=== PATIENT | female | born 1995 | race Caucasian/White ===

== ENCOUNTER 2019-02-03 09:22 | Inpatient (IN) | payer BC ==
[2019-02-03] MEDS ORDERED: Lactated Ringers 1000 ML Bag* 1,000 ML IV ONE ×2 (11:04→14:19)
[2019-02-03] MEDS ORDERED: Buffered Lidocaine 1% SYRIN* 1 ML/SYRINGE INTRADERM ONE (11:04)
[2019-02-03] MEDS ORDERED: Lidocaine 1% MPF ** 5 ML VIAL ONE (11:08)
[2019-02-03] MEDS ORDERED: Ampicillin ADVAN(*) 2 GM in NS 0.9% 100 ML* 100 ML IVPB ONE (11:13)
[2019-02-03] MEDS ORDERED: Betamethasone INJ* 6 MG/ML 5 ML VIAL (30 MG) IM ONE (11:13)
[2019-02-03] MEDS ORDERED: OBEPIDURAL* 0 ML EPIDURAL ONE (11:24)
[2019-02-03 11:49] LABS: ABS Lymphocytes 1.5 10^3/ul (1.0-4.8); ABS Monocytes 0.7 10^3/ul (0-0.8); ABS Neutrophils 6.1 10^3/ul (1.5-7.7); Eosinophil % 0.6 %; Hematocrit 34 % (35-47); Hemoglobin 11.4 g/dL (12.0-16.0); Lymphocyte % 18.2 %; Mean Corpuscular HGB Conc 33 g/dL (31-36); Mean Corpuscular Hemoglobin 26 pg (27-31); Mean Corpuscular Volume 80 fL (80-97); Mean Platelet Volume 8.6 fL (7.4-10.4); Nucleated Red Blood Cells % 0.1; Platelet Count 150 10^3/uL (150-450); Red Blood Count 4.31 10^6 /uL (3.70-4.87); Red Cell Distribution Width 16 % (10-15); White Blood Count 8.4 10^3/uL (3.5-10.8)
[2019-02-03] MEDS ORDERED: Lactated Ringers 1000 ML Bag* 1,000 ML IV SCH ×3 (12:00→18:00)
[2019-02-03 12:02] LABS: Urine Benzodiazepine Screen None Detected (None Detect); Urine Opiates Screen None Detected (None Detect)
[2019-02-03] MEDS ORDERED: Lidocaine 1% w EPI 1:200,000* 30 ML VIAL ONE (13:50)
[2019-02-03] MEDS ORDERED: OBEPIDURAL* 250 ML EPIDURAL ONE (13:50)
[2019-02-03] MEDS ORDERED: EPHEDrine (Pressors)* 50 MG/ML VIAL IV PUSH PRN ×2 (14:19)
[2019-02-03] MEDS ORDERED: Famotidine TAB* 20 MG PO PRN (14:19)
[2019-02-03] MEDS ORDERED: Phenylephrine 40 MCG/ML SYRINGE IV PUSH PRN (14:19)
[2019-02-03] MEDS ORDERED: Sodium Citrate/Citric Acid* 15 ML UDC PO PRN (14:19)
[2019-02-03] MEDS: Phenylephrine 40 MCG/ML SYRINGE IV PUSH PRN ×2 (14:30→15:25)
[2019-02-03] MEDS ORDERED: OBEPIDURAL* 250 ML EPIDURAL SCH (15:00)
[2019-02-03] MEDS ORDERED: ceFOXitin 2 GM IVPREMIX* 2 GM/50 ML BAG ONE (15:41)
[2019-02-03] MEDS ORDERED: ceFOXitin 2 GM IVPREMIX* 2 GM/50 ML BAG IVPB ONE (15:42)
--- NOTE | 2019-02-03 15:48 | HP ---
General Information - Reason for Visit at 35 weeks in labor with prior , declined tolac and desires sterilization along woth repeat section. - General Information Maternal Age: 23 Grav: 2 Para: 1 SAB: 0 IEA: 0 Estimated Due Date: 03/06/19 Determined By: LMP Gestational Age in Weeks/Days: 35 10/02 Maternal Blood Type and Rh: O Negative - Results this Serology/RPR Result: Non-Reactive Rubella Result: Immune HBsAg Result: Negative HIV Result: Negative Past Medical History Delivery History: Hx C/Section, See Records Pertinent Past Medical History: See Records Past Medical History Comment: Depression Pertinent Past Surgical History: See Records Past Surgical History Comment: 2017 Section for arrest disorder 2016 wisdom teeth Pertinent Family History: See Records - Antepartal Records Antepartal Records: Reviewed, Complicated by: - Priro section , pre-term labor Review of Systems Constitutional: Uncomfortable CV Complaint: No Respiratory: Shortness of Breath: No Gastrointestinal: No Nausea/Vomiting, Normal Bowel Movement Genitourinary: No Dysuria, No Bleeding, No Leaking Fluid Musculoskeletal: Contractions - Q 2-3 minutes apart Neurological: No Headache, No Visual Changes Movement: Normal Exam Allergies/Adverse Reactions: Allergies adhesive Allergy (Verified 02/03/19 11:44) Rash Temp 98.1 BP 123/72 P86 RR 22 POx 100% RA Lab Values - Entire Visit: Laboratory Tests 02/03/19 02/03/19 02/03/19 10:07 11:04 11:38 WBC RBC Hgb Hct MCV MCH MCHC RDW Plt Count MPV Neut % (Auto) Lymph % (Auto) Crook % (Auto) Eos % (Auto) Baso % (Auto) Absolute Neuts (auto) Absolute Lymphs (auto) Absolute Monos (auto) Absolute Eos (auto) Absolute Basos (auto) Absolute Nucleated RBC Nucleated RBC % Vag Amniotic Fld Detect Negative Urine Opiates Screen None detected Ur Barbiturates Screen None detected Ur Phencyclidine Scrn None detected Ur Amphetamines Screen None detected U Benzodiazepines Scrn None detected Urine Cocaine Screen None detected U Cannabinoids Screen None detected Blood Type O Negative Antibody Screen Positive Antibody Identification Anti-D Direct Antiglob Test Negative 02/03/19 11:38 WBC 8.4 RBC 4.31 Hgb 11.4 L Hct 34 L MCV 80 MCH 26 L MCHC 33 RDW 16 H Plt Count 150 MPV 8.6 Neut % (Auto) 72.4 Lymph % (Auto) 18.2 Crook % (Auto) 8.4 Eos % (Auto) 0.6 Baso % (Auto) 0.4 Absolute Neuts (auto) 6.1 Absolute Lymphs (auto) 1.5 Absolute Monos (auto) 0.7 Absolute Eos (auto) 0.0 Absolute Basos (auto) 0.0 Absolute Nucleated RBC 0.0 Nucleated RBC % 0.1 Vag Amniotic Fld Detect Urine Opiates Screen Ur Barbiturates Screen Ur Phencyclidine Scrn Ur Amphetamines Screen U Benzodiazepines Scrn Urine Cocaine Screen U Cannabinoids Screen Blood Type Antibody Screen Antibody Identification Direct Antiglob Test - Measurements Height: 5 ft 1 in Weight: 172 lb Weight in lbs: 172.649808 Body Mass Index (BMI): 32.5 Pre- Weight: 130 lb Weight Gained This : 42 lbs and 0 ozs - Exam Breast: Breast Exam Deferred CVA: No CVA Tenderness Extremities: No Edema Heart: Normal Rhythm/Heart Sounds HEENT: No Significant Findings Lungs: Clear Bilaterally Rectal: Rectal Exam Deferred Reflexes: DTR 2+ Thyroid: No Thyromegaly - Ultrasound/Biophysical Profile Biophysical Profile: Normal Reactive NST Targeted Exam Findings See L&D Outpatient Visit Provider Note for Findings: N/A Cervical Exam: 5cm Effacement: 80% Station: -1 Presenting Part: Vertex Membrane Status: Intact Bleeding/Discharge: None EFM Findings - External Monitor Findings Baseline Heart Rate: 140 External Monitor Findings: No Pattern of Variable or Late Decelerations Contractions: Regular, Strong, 45-90 Seconds Assessment/Plan - Assessment labor, prior , declined TOLAC, desires sterilization. - Obstetrical Risk Factors Obstetrical Risk Factors: GBS Unknown, , Previous C/Section in Labor - Plan Plan: IV Hydration, Antibiotic Prophylaxis, Steroids, C/S Delivery - Section and bilateral tubal ligation - Date/Time of Admission Date of Admission: 02/03/19 Time of Admission: 13:00
[2019-02-03] MEDS ORDERED: Sodium Citrate/Citric Acid* 15 ML UDC PO ONE (16:00)
[2019-02-03] MEDS ORDERED: Morphine PF AMP (0.5MG/ML)* 5 MG/10 ML AMP ONE (16:09)
[2019-02-03] MEDS ORDERED: EPHEDrine (Pressors)* 50 MG/ML VIAL ONE (16:11)
[2019-02-03] MEDS ORDERED: Phenylephrine 40 MCG/ML SYRINGE ONE (16:30)
[2019-02-03] MEDS ORDERED: Midazolam* 1 MG/ML 2 ML VIAL (2 MG) ONE (16:48)
[2019-02-03] MEDS ORDERED: Ondansetron INJ* 2 MG/ML VIAL IV PRN (16:53)
[2019-02-03] MEDS ORDERED: Nalbuphine* 10 MG/ML 1 ML VIAL IV PRN (16:53)
[2019-02-03] MEDS ORDERED: fentaNYL* 50 MCG/ML 2 ML VIAL (100 MCG VIAL) IV PRN (16:53)
[2019-02-03] MEDS ORDERED: HYDROmorphone INJ1* 1 MG/ML SYRINGE IV PRN (16:53)
[2019-02-03] MEDS ORDERED: Naloxone* 0.4 MG/ML 1 ML VIAL IV PRN ×2 (16:53)
[2019-02-03] MEDS ORDERED: Acetaminophen TAB* 325 MG PO PRN (16:53)
[2019-02-03] MEDS ORDERED: oxyCODONE/Acetamin 5/325 MG* TAB PO PRN (16:53)
[2019-02-03] MEDS ORDERED: DiMENhydriNATE IV* 50 MG/ML VIAL IV PUSH PRN (16:53)
[2019-02-03] MEDS ORDERED: OXYTOCIN* 10 UNITS/ML 1 ML VIAL ONE (17:00)
[2019-02-03] MEDS ORDERED: Glycerin ADULT SUPP PR PRN (17:46)
[2019-02-03] MEDS ORDERED: Witch Hazel PAD* JAR TOPICAL PRN (17:46)
[2019-02-03] MEDS ORDERED: Dibucaine 1% 28.35 GM TUBE PR PRN (17:46)
[2019-02-03] MEDS: Ketorolac INJ* 30 MG/ML 1 ML VIAL IV PRN (20:19)
[2019-02-03] MEDS: Simethicone TAB* 80 MG TAB.CHEW PO SCH (20:19)
[2019-02-03] MEDS: Docusate CAP* 100 MG PO SCH (20:19)
--- NOTE | 2019-02-03 22:16 | OP ---
DATE OF OPERATION: 02/03/19 - ROOM #117 DATE OF : 89 SURGEON: Richy Morales MD V BELT COVERER: Brandi Julien, certified hyperbaric technician. ANESTHESIA: Spinal. PRE-OP DIAGNOSES: at 35 weeks, labor, and prior section. The patient desires sterilization and declines trial of labor after . POST-OP DIAGNOSES: at 35 weeks, labor, and prior section. The patient desires sterilization and declines trial of labor after . OPERATIVE PROCEDURE: Repeat low transverse section with bilateral fimbriectomy. ESTIMATED BLOOD LOSS: 700 cc. FLUIDS: She received 1200 cc of IV crystalloid fluid. URINE OUTPUT: 400 cc of clear urine. FINDINGS: Delivery of a viable female infant over clear fluid with a weight of 6 pounds 7 ounces with Apgars of 9 and 9. The placenta was grossly intact and sent to Pathology. The uterus, adnexa, bowel and bladder were within normal limits and there were no complications. DESCRIPTION OF PROCEDURE: The patient was taken to the operating room where she was identified. She was placed on the operating table where a spinal anesthetic was obtained without difficulty. She was then placed in the supine position with a leftward tilt, prepped and draped in a normal sterile fashion. A Pfannenstiel skin incision was made with a knife and carried through to the underlying layer of fascia. The fascia was nicked in the midline and extended laterally with curved Gupta scissors. The fascia was then grasped superiorly and inferiorly with Franki clamps and dissected off sharply from the rectus muscle. The rectus muscle was in the midline bluntly. The peritoneum was identified, grasped with pickups, and entered sharply with Metzenbaum scissors and extended superiorly and inferiorly sharply. A bladder blade was inserted into the patient's abdomen. A bladder flap was created using Metzenbaum scissors, over which the bladder blade was then reinserted. A low-transverse uterine incision was made with a knife, extended laterally with bandage scissors. The amniotic sac was ruptured, the infant's head was then grasped and delivered atraumatically and the infant's body was delivered atraumatically. The cord was clamped and cut and the was handed off to waiting awning craftsman. Cord bloods were obtained. The placenta was removed manually. The uterus was then exteriorized, cleared of all clot and debris using moist laparotomy sponges. The uterine incision was then closed using 0- Polysorb suture in a running locked fashion with a second imbricating layer of 0 - Polysorb suture with good hemostasis noted. At this point, attention was then brought on to the patient's fallopian tubes bilaterally where bilateral fimbriectomy was performed in an usual fashion using 2-0 Polysorb sutures with portions of the right and left fimbriae sent to Pathology. The uterus was then returned to the patient's abdomen. The gutters were then cleared of all clots and debris using irrigation and moist laparotomy sponges. Irrigation fluids and sponges were removed from the patient's abdomen. The uterine incision was noted to be hemostatic. All the instruments were removed from the patient's abdomen as well as sponges. The peritoneum was then closed using 2-0 Polysorb suture in a running fashion. The fascia was closed using 0-Polysorb suture in a running fashion. The skin was closed with 4-0 Monocryl in subcuticular stitch. The patient tolerated the procedure well. Sponge, lap, and needle counts were correct x2. She was then transferred to the recovery room area in stable condition. [id number]/[facility] #: [id number] MTDD
[2019-02-04] MEDS: Ketorolac INJ* 30 MG/ML 1 ML VIAL IV PRN ×2 (05:38→11:59)
[2019-02-04 06:43] LABS: ABS Basophils 0.1 10^3/ul (0-0.2); ABS Lymphocytes 0.8 10^3/ul (1.0-4.8); ABS Monocytes 1.3 10^3/ul (0-0.8); ABS Neutrophils 14.7 10^3/ul (1.5-7.7); Hematocrit 29 % (35-47); Hemoglobin 9.4 g/dL (12.0-16.0); Lymphocyte % 4.6 %; Mean Corpuscular HGB Conc 33 g/dL (31-36); Mean Corpuscular Hemoglobin 26 pg (27-31); Mean Corpuscular Volume 80 fL (80-97); Mean Platelet Volume 8.5 fL (7.4-10.4); Platelet Count 151 10^3/uL (150-450); Red Cell Distribution Width 15 % (10-15); White Blood Count 16.8 10^3/uL (3.5-10.8)
[2019-02-04] MEDS: Docusate CAP* 100 MG PO SCH ×3 (08:27→20:07)
[2019-02-04] MEDS: Ferrous Gluconate TAB* 324 MG TAB PO SCH ×2 (08:27→20:07)
[2019-02-04] MEDS: Simethicone TAB* 80 MG TAB.CHEW PO SCH ×4 (08:27→20:07)
[2019-02-04] MEDS ORDERED: Acetaminophen TAB* 325 MG PO PRN (09:00)
[2019-02-04] MEDS ORDERED: oxyCODONE/Acetamin 5/325 MG* TAB PO PRN (09:00)
[2019-02-04] MEDS: Escitalopram * 10 MG TAB PO SCH (09:49)
[2019-02-04] MEDS ORDERED: RHO D Immune Globulin (HUMAN)* 300 MCG = 1,500 I.U. INJ IM ONE (10:08)
[2019-02-04] MEDS: Ibuprofen TAB* 600 MG PO PRN (18:11)
[2019-02-04] MEDS: oxyCODONE/Acetamin 5/325 MG* TAB PO PRN (20:08)
[2019-02-04] MEDS ORDERED: Zolpidem TAB* 5 MG PO PRN (21:00)
[2019-02-05] MEDS: Ibuprofen TAB* 600 MG PO PRN ×4 (04:20→22:50)
[2019-02-05] MEDS: Simethicone TAB* 80 MG TAB.CHEW PO SCH ×4 (07:36→20:04)
[2019-02-05] MEDS: Docusate CAP* 100 MG PO SCH ×3 (07:36→20:04)
[2019-02-05] MEDS: oxyCODONE/Acetamin 5/325 MG* TAB PO PRN ×2 (07:36→20:05)
[2019-02-05] MEDS: Ferrous Gluconate TAB* 324 MG TAB PO SCH ×2 (10:27→20:05)
[2019-02-05] MEDS: Escitalopram * 10 MG TAB PO SCH (14:00)
[2019-02-06] MEDS: oxyCODONE/Acetamin 5/325 MG* TAB PO PRN ×2 (02:16→08:12)
[2019-02-06] MEDS: Ibuprofen TAB* 600 MG PO PRN ×2 (05:23→11:04)
[2019-02-06 07:52] VITALS: BP 113/69
[2019-02-06] MEDS: Simethicone TAB* 80 MG TAB.CHEW PO SCH (08:11)
[2019-02-06] MEDS: Docusate CAP* 100 MG PO SCH (08:12)
[2019-02-06] MEDS: Ferrous Gluconate TAB* 324 MG TAB PO SCH (08:12)
== END 2019-02-06 11:39 | disposition home or self-care (01) | DRG 540 ==
LOC: MCHOBOUT 09:22 → MCHOB 10:55
PROVIDERS: ADMIT Obstetrics & Gynecology; ATTEND Obstetrics & Gynecology
PROC: 4A1HXCZ Monitoring of Products of Conception, Cardiac Rate, External Approach (ICD-10-PCS; 2019-02-03)
PROC: 0UB70ZZ Excision of Bilateral Fallopian Tubes, Open Approach (ICD-10-PCS; 2019-02-03)
PROC: 10D00Z1 Extraction of Products of Conception, Low, Open Approach (ICD-10-PCS; principal; 2019-02-03 16:07)
DX: O60.14X0 Preterm labor third trimester with preterm delivery third trimester, not applicable or unspecified (principal); O34.211 Maternal care for low transverse scar from previous cesarean delivery; O99.344 Other mental disorders complicating childbirth; F32.9 Major depressive disorder, single episode, unspecified; Z3A.35 35 weeks gestation of pregnancy; Z37.0 Single live birth; Z88.8 Allergy status to other drugs, medicaments and biological substances; O90.81 Anemia of the puerperium; Z30.2 Encounter for sterilization
CPT/HCPCS: 36415; 80307; 84112; 85025; 85461; 86850; 86870; 86880; 86900; 86901; 88302; 88307; A9270-GY; J0694; J0702; J1885; J2001; J2250; J2405; J2590; J2790